=== PATIENT | female | born 1955 | race Caucasian/White ===

== ENCOUNTER 2019-01-18 17:34 | Inpatient (IN) | payer BC | END 2019-01-21 18:00 | DRG 482 | LOC: SURG 17:34 | PROC: 0QS704Z Reposition Left Upper Femur with Internal Fixation Device, Open Approach (ICD-10-PCS; principal; 2019-01-19) | DX: M80.052A Age-related osteoporosis with current pathological fracture, left femur, initial encounter for fracture (principal); Z66 Do not resuscitate; W10.9XXA Fall (on) (from) unspecified stairs and steps, initial encounter; I10 Essential (primary) hypertension; E11.65 Type 2 diabetes mellitus with hyperglycemia ==

== ENCOUNTER 2019-01-21 15:12 | Inpatient (IN) | payer BC ==
[~2019-01-21] VITALS: Ht 154.9 cm; Wt 71.5 kg
[~2019-01-21 15:12] MED LIST: ASPI325T6 PO; ASPIRIN 81M81 MG/TA2 PO; CALCIUM CARBON650 M2 PO; COLACE 100100 MG/CAP PO; DULCOLAX S10 MG/SUPP RC; GLUCOPHAGE1000 MG PO; GLUCOTROL 5M5 MG/TAB PO; LIPITOR 10MG10 MG PO; MULTIPLE VITAMI1 CAP PO; NORCO 325 MG-7.1 TAB PO; NOVOLOG 100U100 U/M1 SQ; OMEGA-3 1000 MG1 CAP PO; PRINIVIL20 MG PO
[2019-01-21 19:46] VITALS: BP 115/52; PULSE 88; TEMP 97.6
--- NOTE | 2019-01-21 21:00 | NUR ---
PT RESTING IN BED. PLEASANT AND COOPERATIVE. PT DENIES NEED FOR PAIN MED AT THIS TIME. DRSG TO LT HIP CDI. ELEVATED HEELS. ICE PACKE TO LT HIP. CALL LIGHT IN REACH. REVIEWED SAFETY PRECAUTIONS TO IPR. PT AGREEABLE.
[2019-01-22 05:13] VITALS: BP 137/73; PULSE 92; TEMP 97.7
--- NOTE | 2019-01-22 08:46 | NUR ---
PT SITTING UP IN CHAIR AND EATNG BREAKFAST. ATE 100 % MEAL. STATES NO PAIN BUT WOULD LIKE PAIN MED FOR THERAPY.
--- NOTE | 2019-01-22 09:08 | NUR ---
OT WITH PT
--- NOTE | 2019-01-22 13:06 | NUR ---
SITTING UP IN HER RECLINER VISITING WITH FAMILY. DENIES NEEDS OR PAIN
--- NOTE | 2019-01-22 13:29 | NUR ---
AFTER THIS AMS THERAPY SHOWER DRESSING WAS CHANGED TO AIRSTRIP. SITE IS WELL APPROXIMATED AND PINK. SLIGHT OLD FRIED BLOOD ON THE DRESSING NOTED.
--- NOTE | 2019-01-22 13:53 | NUR ---
ANGELA met with the patient and her family. The patient lives in [place] with her . The patient reports independence with ADLs prior to hospitalization and she has a wheelchair in case she may need it. The patient's PCP is Dr. Royal in [place], [place]. The patient asked that I give an envelope with [place] paperwork to the physician. SW placed the envelope on the patients chart and left a note for the physician. ANGELA informed the nurse of the paperwork. ANGELA will continue to follow.
[2019-01-22 17:33] VITALS: BP 130/59; PULSE 108; TEMP 98.6
--- NOTE | 2019-01-23 00:53 | NUR ---
THE PT WAS BEDRESTING WITH TV ON REPORT WAS REIEVED FROM NELLIE. THE PT'S ICE PACK WAS REFRESHED TO HER LEFT HIP, AIRSTRIP IS CD&I. ACCUCHECK WAS 206, S\S NOVOLOG PER ORDER, HS SNACK OF VANILLA ICE CREAM AND ASHIA CRACKER TAKEN. THE PT CALLS FOR ASSISTANCE UP TO THE BR, CGA WITH GAIT BELT AND WALKER. HAD C\0 PAIN 1 NORCO WITH GOOD EFFECT. THE PT HAD A BM.
[2019-01-23 03:05] VITALS: BP 127/72; PULSE 67; TEMP 98.1
--- NOTE | 2019-01-23 07:24 | NUR ---
THE PT APPEARED TO HAVE GOTTEN ADEQUATE SLEEP. CALLED FOR ASSISTANCE TO THE BR AND THEN TO THE RECLINER, USING HER IS, WAITING FOR BREAKFAST.
--- NOTE | 2019-01-23 08:19 | NUR ---
Report from CANDIDO Estrada. Pt to chair with legs up, ice pack to l hip, A&O, pleasant, takes pills with thin liquids, visiting.
--- NOTE | 2019-01-23 08:34 | NUR ---
Barcode scanner not working, replace, not working, rebooted computer, not working... full documented meds.
--- NOTE | 2019-01-23 12:11 | NUR ---
Pt amb sullivan with PT. To chair for lunch, independent with eating, glasses in place, call light in reach.
--- NOTE | 2019-01-23 12:13 | NUR ---
Ice pack to left hip
[2019-01-23 16:46] VITALS: BP 128/62; PULSE 115; TEMP 98.8
--- NOTE | 2019-01-23 16:59 | NUR ---
Pt to chair for supper with BLE up, ice pack for hip provided.
--- NOTE | 2019-01-23 19:05 | NUR ---
SHIFT REPORT RECEIVED FROM MCKINLEY DRAPER. PT REQUESTED PAIN MEDICATION FOR LLE PAIN LEVEL 5. SEE MAR FOR MEDICATIONS GIVEN. PT A&OX4. SITTING IN RECLINER. CALL LIGHT IN REACH.
--- NOTE | 2019-01-23 20:30 | NUR ---
PT TRNASFERS TO BED FROM RECLINER WITH WALKER SBA. PAIN MEDICATION EFFECTIVE. KRISTINA HOSE OFF. SCD'S ON BILAT. CALL LIGHT IN REACH. BED ALARM SET.
[2019-01-23 23:30] VITALS: PULSE 97
[2019-01-24] VITALS (7 sets, daily range): BP systolic 110–130; BP diastolic 61–74; PULSE 102–128; TEMP 98.2–98.3
--- NOTE | 2019-01-24 05:39 | NUR ---
HR 120. ASYMPTOMATIC. DENIES DYSPNEA, CHEST PAIN OR NAUSEA. A DAVONTE MARTINEZ NOTIFIED. NEW ORDERS NOTED. PT INFORMED OF NEW ORDERS FOR EKG AND UA. PT INSTRUCTED ON UA NEEDING TO BE OBTAINED. PT DENIES QUESTIONS.
--- NOTE | 2019-01-24 06:20 | NUR ---
NOTIFIED Kang MARTINEZ EKG COMPLETED.
[2019-01-24 06:29] LABS: MUCOUS Present /lpf; PH 5 (5-8); SQUAMOUS EPITHELIAL 0-2 /hpf; URINE APPEARANCE Clear; URINE BACTERIA None Seen /hpf; URINE BILIRUBIN Negative (NEGATIVE); URINE BLOOD Negative (NEGATIVE); URINE COLOR Yellow; URINE GLUCOSE 1+ (NEGATIVE); URINE KETONE Negative (NEGATIVE); URINE LEUKOCYTE ESTERASE Negative (NEGATIVE); URINE NITRATE Negative (NEGATIVE); URINE PROTEIN(semi-quant) Negative (NEGATIVE); URINE RBC 0-2 /hpf; URINE UROBILINOGEN Negative (NEGATIVE)
[2019-01-24 07:33] LABS: COLLECTION METHOD CLEAN CATCH
[2019-01-24 08:26] LABS: BASO # 0.1 (0.0-0.2); BASO % 0.5 % (0.0-2.0); EOS # 0.1 (0.0-0.7); EOS % 0.9 % (0-4.0); GRAN # 8.7 (1.4-6.5); HEMATOCRIT 42.4 % (37.0-47.0); HEMOGLOBIN 14.1 g/dl (12.5-16.0); LYMPH # 2.8 (1.2-3.4); LYMPH % 22.3 % (20.0-51.0); MEAN CELL VOLUME 90 fl (80.0-100.0); MEAN CORPUSCULAR HEMOGLOBIN 30 pg (27.0-31.0); MEAN CORPUSCULAR HGB CONC 33 g/dl (33.0-37.0); MEAN PLATELET VOLUME 9.3 fl (7.4-10.4); MONO # 0.8 (0.1-0.6); PLATELET COUNT 498 K/mm3 (130-400); RED BLOOD COUNT 4.72 M/mm3 (4.10-5.30); REDCELL DISTRIBUTION WIDTH-CV 12.1 % (11.5-14.5)
[2019-01-24 08:48] LABS: ALBUMIN 3.9 gm/dL (3.5-5.0); BILIRUBIN,TOTAL 0.8 mg/dL (0.0-1.0); CALCIUM 10.1 mg/dL (8.4-10.2); CREATININE, serum 0.69 mg/dL (0.52-1.25); POTASSIUM 3.9 mmol/L (3.4-5.0); TOTAL PROTEIN 7.3 gm/dL (6.4-8.2)
--- NOTE | 2019-01-24 18:00 | NUR ---
Patient did well today. She stated having increased pain today, but she said the increased therapy is what is causing. She is tolerating it well just gets worn out easily. Dressing changed by Nanette Llamas RN. No complaints of nausea during the day. She sat up most the day. Tolerated her diet well. No other changes at this time. Call light within reach.
--- NOTE | 2019-01-24 23:42 | NUR ---
THE PT WAS BEDRESTING ROUNDS MADE, PLEASANT BUT VERBALIZED THAT SHE WAS VERY TIRED FROM A HARD DAY OF THERAPIES. NEW SCHEDULE UP, PT GRIMACES. CALLED FOR ASSISTANCE TO THE BR TO VOID, CGA WITH GAIT BELT AND WALKER, ASSISTED BY SHERRON HER. ACCUCHECK WAS 233, 2 UNITS OF S\S NOVOLOG, WITH HS SNACK OF ASHIA CRACKER AND ICE CREAM. SHE STATED SHE WANTED 1 SENNA AND 1 NORCO FOR HS. GIVEN. APPEARS TO REST WITH EYES CLOSED, RESP EVEN. SCD'S ON, PT DOESN'T WEAR KRISTINA HOSE AT NIGHT.
--- NOTE | 2019-01-25 04:49 | NUR ---
THE PT APPEARS TO HAVE GOTTEN ADEQUATE SLEEP.
[2019-01-25 06:38] VITALS: BP 130/64; PULSE 116; TEMP 98.6
[2019-01-25 12:28] VITALS: BP 124/62; PULSE 122
--- NOTE | 2019-01-25 16:00 | NUR ---
Put in an 18 G IV catheter to patient's right AC with no difficulty.
--- NOTE | 2019-01-25 19:58 | NUR ---
Patient resting in recliner at this time, call light in reach and family by her side. Patient attended morning therapies today. Upon returning from those therapies patient vomited at least 300 ml on herself. Patient was cleaned up and given prn Zofran per Dr. Hong. Patient at the time was reporting pain 7/10 following therapies. She was also given prn Mather following her zofran and it was effective. Dr. Hong saw patient and ordered a D-Dimer. This was completed and came back elevated. Dr. Hong then ordered a bilateral ultrasound of lower legs and CT with contrast. These were completed and no new orders per Dr. Hong. Patient's Metformin was held this evening per Dr. Hong due to having the Chest CT with contrast. Family approached this nurse stating the anxiety the patient was under due to not knowing the results of the tests. This nurse spoke with patient and updated her on the results. She voiced understanding. Patient concerned about her still having a cough and some chest congestion. This was communicated to Dr. Hong no new orders at this time. Patient continues to have a tachy pulse. Will continue to monitor. She was educated on the need to stay hydrated, she voiced understanding. Reported off to night nurse.
--- NOTE | 2019-01-26 00:24 | NUR ---
THE PT WAS SITTING UP IN HER RECLINER, WITH MULTIPLE FAMILY MEMBERS IN TO VISIT. ZAYRA ASKS ABOUT FAMILY MEETING, THIS NURSE CHECKED WITH CLARA, WHO CHECKED WITH FELICIA, MEETING WILL FOLLOW OTHERS TOMORROW ABOUT 2PM. ZAYRA REPORTED THAT HIS MOTHER IN LAW ISN'T HERSELF, FEELS THAT SHE IS FEELING BAD BUT NOT WANTING TO "COMPLAIN", CLARA IN TO SEE THE PT, FOLLOWED BY THIS NURSE WHO WAS IN TO ASSESS THE PT. STILL TACHYCARDIC AT 118. REGULAR, EDEMA OF THE LEFT HIP, BUT LSCTA, BS+ALL QUADRANTS, PAIN IS AT A 3/10 PAIN SCALE, CSM T LEFT LOWER EXTREMITY WNL. VISITORS DEPARTED. PT HAD AN ACCUCHECK OF 197, NO S\\S REQUIRED, HS SNACK OF CHEESE WITH SALTINE, AND VANILLA ICE CREAM. ICE REFRESHED TO LEFT HIP, TYLENOL FOR PAIN, CALLED FOR ASSISTANCE TO THE BR AND THEN TO BED WITH SCD'S ON. NAPPED, CALLED FOR BR AGAIN. THEN BACK TO BED, POSITIONED FOR COMFORT.
--- NOTE | 2019-01-26 03:06 | NUR ---
PT HAD ASKED FOR A FACE CLOTH EARLIER, C\O THE ROOM BEING TOO HOT. DOOR LEFT OPEN, TEMP LOWERED, COOL CLOTH, TEDS AND SCD'S OFF. THE PT IS BEDRESTING WITH EYES CLOSED, RESP EVEN.
[2019-01-26 06:30] VITALS: BP 119/67; PULSE 105; TEMP 97.3
--- NOTE | 2019-01-26 06:37 | NUR ---
THE PT WAS UP AT THE SINK BRUSHING HER TEETH THE SHIFT WAS ENDING, HEART RATE IMPROVED, 105. ACCUCHECK 170. APPEARED TO GET AN ACCEPTABLE AMOUNT OF SLEEP.
[2019-01-26 08:41] LABS: HEMATOCRIT 39.5 % (37.0-47.0); HEMOGLOBIN 12.8 g/dl (12.5-16.0); MEAN CELL VOLUME 90 fl (80.0-100.0); MEAN CORPUSCULAR HEMOGLOBIN 29 pg (27.0-31.0); MEAN CORPUSCULAR HGB CONC 32 g/dl (33.0-37.0); MEAN PLATELET VOLUME 9.4 fl (7.4-10.4); PLATELET COUNT 420 K/mm3 (130-400); RED BLOOD COUNT 4.39 M/mm3 (4.10-5.30)
[2019-01-26 08:54] LABS: ALBUMIN 3.7 gm/dL (3.5-5.0); BILIRUBIN,TOTAL 0.6 mg/dL (0.0-1.0); CALCIUM 9.6 mg/dL (8.4-10.2); CREATININE, serum 0.66 mg/dL (0.52-1.25); POTASSIUM 4.1 mmol/L (3.4-5.0); TOTAL PROTEIN 6.8 gm/dL (6.4-8.2)
[2019-01-26 09:11] LABS: BAND 5 % (0-10); EOSINOPHIL 1 % (0-4); LYMPHOCYTE 27 % (20.0-51.0); METAMYELOCYTE 1 % (0-0); NEUTROPHILS 59 % (42.0-75.2); PLATELET ESTIMATE NORMAL (NORMAL)
--- NOTE | 2019-01-26 11:15 | NUR ---
Patient attended all therapies this morning. Took pills whole with water. Changed bandage to KRANTHI observing steri strips in place and no drainage. Applied new gauze to area and secured with tegaderm. Patient had requested the use of extra strength tylnol instead of using Harwood. See new orders per Dr. Hong. Patient has been having some sinus congestion and reported that she had a cold a while back but the cough and congestion keeps lingering on. See new orders per Dr. Hong for Musinex. Reviewed all meds with patient having her repeat back what each med was for. She voiced understanding. Patient wanted more education on foods that contain iron and was given a hand out on this.
--- NOTE | 2019-01-26 16:00 | NUR ---
ANGELA attended a family meeting with the patientand patient's daughter. IPR director, PT, and OT were also present. IPR director explained the purpose of the meeting. PT/OT disucssed how patient is doing and their recommendations for a tub transfer bench as well as outpatient PT. IPR director also discussed tentative discharge date for Thursday, 02/01. Patient and daughter agreed on this plan. The team answered all the patient and families questions. ANGELA then followed up with patient and daughter with the IPR Team Conference Notes. ANGELA also informed patient that her insurance does not cover the cost of a tub transfer bench and gave options for where patient could obtain one. Patient reports she might know of someone who can give her one but if not they will purchase one. The patient and daughter did not have other questions or concerns. ANGELA will continue to follow.
[2019-01-26 18:47] VITALS: BP 133/62; PULSE 131; TEMP 98.7
--- NOTE | 2019-01-26 19:00 | NUR ---
Patient attended all therapies today requesting only extra strength Tylenol to help with pain. This seemed to be effective today. Tolerated diet well. Had a BM today, wiped herself and was a observation only with transfers to and from toilet. Patient had requested some sugar free gatoraid or poweraid. Our kitchen does not provide this. Family was made aware of this and will be getting some sugar free beverages for patient. Patient denied any questions this evening. Reported off to night nurse.
--- NOTE | 2019-01-26 19:23 | NUR ---
Removed INT to right AC. IV catheter was intact. Patient tolerated with minimal discomfort reported.
--- NOTE | 2019-01-26 20:00 | NUR ---
PT SITTING IN RECLINER. PLEASANT AND COOPERATIVE. ACCUCHECK 337. GAVE 6 UNITS SSI. HS SNACK 1/2 ORANGE CHEESE AND CRACKERS. KRISTINA HOSE OFF BILAT AT THIS TIME. ENC SCD'S WHEN IN BED. PT AGREED. PT HAS OCCASIONAL PRODUCTIVE COUGH WITH CLEAR THICK SPUTUM. GETTING MUCINEX. CALL LIGHT IN REACH. CHAIR ALARM IN PLACE.
--- NOTE | 2019-01-26 22:30 | NUR ---
PT REPORTS "FEELING FUNNY EARLIER" SHAKINESS. BUT FEELS FINE NOW. POSSIBLY LOWERING BLOOD SUGAR FROM SSI GIVEN EARLIER. HR REMAINS 106. NO OTHER S/S. COLACE GIVEN FOR HARD STOOL THIS AM. ES TYLENOL GIVEN PER REQUEST FOR RT HIP PAIN LEVEL 2/10. CALL LIGHT IN REACH. BED ALARM SET.
--- NOTE | 2019-01-27 01:12 | NUR ---
SPOT CHECK ACCUCHECK 156. NO FURTHER "FUNNY FEELINGS" SINCE EARLIER. HR 100.
[2019-01-27 01:13] VITALS: PULSE 100
[2019-01-28 12:49] LABS: BASO # 0.1 (0.0-0.2); BASO % 0.5 % (0.0-2.0); EOS # 0.2 (0.0-0.7); EOS % 1.4 % (0-4.0); GRAN # 10.8 (1.4-6.5); GRAN % 67.2 % (42.2-75.2); HEMATOCRIT 40.2 % (37.0-47.0); HEMOGLOBIN 13.9 g/dl (12.5-16.0); LYMPH # 3.3 (1.2-3.4); LYMPH % 20.7 % (20.0-51.0); MEAN CELL VOLUME 91 fl (80.0-100.0); MEAN CORPUSCULAR HEMOGLOBIN 31 pg (27.0-31.0); MEAN CORPUSCULAR HGB CONC 35 g/dl (33.0-37.0); MEAN PLATELET VOLUME 9.2 fl (7.4-10.4); MONO # 1.5 (0.1-0.6); RED BLOOD COUNT 4.42 M/mm3 (4.10-5.30); REDCELL DISTRIBUTION WIDTH-CV 12.2 % (11.5-14.5)
[2019-01-28 12:55] LABS: PLATELET COUNT 578 K/mm3 (130-400)
[2019-01-28 13:06] LABS: CALCIUM 10.4 mg/dL (8.4-10.2); CREATININE, serum 0.68 mg/dL (0.52-1.25); POTASSIUM 3.8 mmol/L (3.4-5.0)
[2019-01-28 18:27] LABS: COLLECTION METHOD CLEAN CATCH
[2019-01-28 18:47] VITALS: BP 117/48; PULSE 75; TEMP 98.2
[2019-01-28 18:50] LABS: MUCOUS Present /lpf; PH 5 (5-8); SQUAMOUS EPITHELIAL 0-2 /hpf; URINE APPEARANCE Hazy; URINE BACTERIA None Seen /hpf; URINE BILIRUBIN Negative (NEGATIVE); URINE BLOOD Negative (NEGATIVE); URINE COLOR Yellow; URINE GLUCOSE Negative (NEGATIVE); URINE KETONE Negative (NEGATIVE); URINE LEUKOCYTE ESTERASE Negative (NEGATIVE); URINE NITRATE Negative (NEGATIVE); URINE PROTEIN(semi-quant) Negative (NEGATIVE); URINE RBC 0-2 /hpf; URINE UROBILINOGEN Negative (NEGATIVE)
--- NOTE | 2019-01-28 20:00 | NUR ---
Patient modified independent in room and sitting up in recliner. Alert and oriented x4. Denies pain at this time. Takes cheese and crackers following accu check. Dressing left hip CDI and new ice bag given. HS meds all reviewed and taken without problems.
--- NOTE | 2019-01-28 20:45 | NUR ---
Pt made modified independent in room today with FWW. Donned own TEDs this morning with tool. Hip dressing without shadowing. Pt reports SCDs on overnight. Still tachycardic, RRR. Tylenol ES for pain. Report to CANDIDO Cummings.
--- NOTE | 2019-01-28 20:47 | NUR ---
Elevated WBC reported to Dr. Hong, who ordered UA. Pt denies dysuria, back pain, foul odor or cloudy urine, or frequency.
--- NOTE | 2019-01-28 23:30 | NUR ---
Patient rests in bed with eyes closed. Respirations with ease. SCD's on.
[2019-01-29 04:26] VITALS: BP 132/64; PULSE 109; TEMP 98.7
--- NOTE | 2019-01-29 06:00 | NUR ---
Patient awakened for accu check. Denies further needs. Incontinent in levi pad earlier and changed self to pullup. Rests in bed. Ice to left hip.
[2019-01-29 07:40] LABS: BASO % 0.4 % (0.0-2.0); EOS # 0.2 (0.0-0.7); EOS % 1.8 % (0-4.0); GRAN # 5.8 (1.4-6.5); GRAN % 60.5 % (42.2-75.2); LYMPH # 2.5 (1.2-3.4); LYMPH % 26.2 % (20.0-51.0); MEAN CELL VOLUME 90 fl (80.0-100.0); MEAN CORPUSCULAR HGB CONC 33 g/dl (33.0-37.0); MEAN PLATELET VOLUME 9.3 fl (7.4-10.4); MONO # 0.9 (0.1-0.6); MONO % 9.6 % (1.7-9.3); RED BLOOD COUNT 3.85 M/mm3 (4.10-5.30); REDCELL DISTRIBUTION WIDTH-CV 12.3 % (11.5-14.5)
[2019-01-29 07:46] LABS: HEMATOCRIT 34.8 % (37.0-47.0); HEMOGLOBIN 11.4 g/dl (12.5-16.0); MEAN CORPUSCULAR HEMOGLOBIN 30 pg (27.0-31.0); PLATELET COUNT 417 K/mm3 (130-400)
--- NOTE | 2019-01-29 08:17 | NUR ---
Fell asleep right away at 10 pm, slept to 3:30 AM, went to bathroom, back to bed and then slept the rest of the morning. Pain 1/10 given one extra strength tylenol to pre medicate prior to group therapy. Will continue to monitor.
[2019-01-29 15:26] VITALS: BP 119/59; PULSE 112; TEMP 99.1
--- NOTE | 2019-01-29 19:34 | NUR ---
Patient resting in recliner at this time, call light in reach and indepdent in her room. Dressing to left hip incision is CDI and was last replaced on 01/26/19. Will continue to monitor. Patient has been indepedent with grooming, toileting, getting in and out of bed, rolling left & right, standing and sitting. She has been using her walker appropriatly. Pulse continues to be watched for increased tachycardia. Aranza had pain today -02/06 and was managed with extra strength tylenol with good effect. Will continue to monitor. Patient has been eating well today. Attended group therapy today. Denies any concerns at this time.
--- NOTE | 2019-01-29 21:00 | NUR ---
HS meds all reviewed and given along with tylenol for pain. Sits up in recliner watching game on TV. Denies further needs. New ice pack given and to left hip.
--- NOTE | 2019-01-29 23:07 | NUR ---
Patient rests in bed with eyes closed. Respirations with ease.
--- NOTE | 2019-01-30 01:00 | NUR ---
RESTS WITH EYES CLOSED. RESPIRATIONS WITH EASE.
--- NOTE | 2019-01-30 03:00 | NUR ---
Patient awake resting in bed. States doing fine and denies needs.
[2019-01-30 03:34] VITALS: BP 120/63; PULSE 109; TEMP 98.8
--- NOTE | 2019-01-30 17:43 | NUR ---
Patient resting in recliner at this time, call light in reach and is independent in her room with a walker. Patient walked with her walker and was observation only when walking around [facility] and Surgical hallway today. Patient's pain to Left Lower Leg has been managed with extra strength tylenol and is very effective. Patient tolerating diet well. Patient denied questions at this time. Patient was seen by Dr. Hong, no new orders.
[2019-01-30 18:06] VITALS: BP 130/57; PULSE 132; TEMP 99.5
--- NOTE | 2019-01-31 01:47 | NUR ---
THE PT WAS UP IN HER RECLINER THE SHIFT BEGAN, MANAGING MODIFIED INDEPENDENT IN HER ROOM WITHOUT DIFFICULTY. APPEARS TO HAVE GOOD ATTENTION TO SAFETY AND SURROUNDINGS. ACCUCHECK WAS 239, HS SNACK OF SALTINES-2 WITH 1 SLICE OF CHEESE AND A VANILLA ICE CREAM. THE PT GOT SELF TO AND FROM THE BR, CALLED FOR ASSISTANCE WITH SCD'S AND TO REFRESH ICE BAG FOR HER LEFT HIP. WAS UP TO THE BR ABOUT MN, REQUESTED TYLENOL FOR DISCOMFORT- GIVEN.
--- NOTE | 2019-01-31 04:43 | NUR ---
BEDRESTING WITH EYES CLOSED, RESP EVEN
--- NOTE | 2019-01-31 04:44 | NUR ---
APPEARS TO GET ADEQUATE SLEEP TONIGHT.
[2019-01-31 05:27] VITALS: BP 129/60; PULSE 114; TEMP 99
[2019-01-31] MEDS ORDERED: TYLENOL 325MG325 MG PO (08:48)
[2019-01-31] MEDS ORDERED: NORCO 325 MG-7.1 TAB PO (08:49)
--- NOTE | 2019-01-31 15:00 | NUR ---
Patient has been doing well today. Denies nausea. Minimal complaints of pain. She has been doing well with her therapies. She showered this am. Thas not been any drainage from her incision for over 5 days so dressing has been discontinued. She has some bruising to left thight but is healing well otherwise. No other changes at this time. Call light within reach.
[2019-01-31 17:53] VITALS: BP 119/47; PULSE 120; TEMP 98.3
--- NOTE | 2019-02-01 00:56 | NUR ---
THE PT WAS VISITING WITH HER DAUGHTER AND SON IN LAW THE SHIFT BEGAN. SPECIFIC INSTRUCTIONS WERE GIVEN TO THIS NURSE BY THE PT'S DAUGHTER AND THIS WAS CONVEYED ON UNIT CENSUS FOR PLAN OF DISCHARGE TO HOME WITH FALILY- OUT PT THERAPY TO CONTINUE. FAMILY DEPARTED FOR HOME, THEN SHE HAD SEVERAL PHONE CALLS. THIS NURSE IN FOR HER ASSESSMENT AND ACCUCHECK- 220 AND MEDS, WANTED TYLENOL FOR C\O PAIN. GIVEN WITH GOOD EFFECT IN AN HOUR, THE PT WAS BEDRESTING WITH EYES CLOSED, RESP EVEN. HER HS SNACK WAS VANILLA PUDDING, SLICE OF CHEESE AND 2 SALTINES.
--- NOTE | 2019-02-01 04:10 | NUR ---
APPEARS TO GET ADEQUATE SLEEP. THE PT IS MODIFIED INDEPENDENT IN HER ROOM WITH HER WALKER WITHOUT FALL OR INJURY- GOOD ATTENTION TO SAFETY AND SURROUNDINGS.
[2019-02-01 06:27] VITALS: BP 132/65; PULSE 110; TEMP 98.4
--- NOTE | 2019-02-01 14:26 | NUR ---
Pt discharged at this time
--- NOTE | 2019-02-01 20:49 | NUR ---
Summary: Report from CANDIDO Estrada. Pt dariela mod I in rm w/o complaint. Tylenol for pain PRN. BG required no SSI. Printed pt's health summary, discharge summary, and home med list and reviewed with pt and and daughter in room. Given printed prescription for norco. Stressed importance of f/u appts. Called pt's pharm to verify doses and frequencies of lisinopril, atorvastatin, and glipizide. Belongings gathered by pt/family, including glasses, walker with basket, cell phone political director, ring, shoes, clothes and coats. Pt and family denied any questions. Pt transported via by SHERRON Esquivel for ride home. Pt and family denied any questions. Pt's cell phone later found and daughter picked it up- they had not yet departed from the parking lot. Faxed pt's face sheet, H&P, discharge summary and blood sugars to PCP and received "OK" fax receipt.
== END 2019-02-01 14:30 | disposition home or self-care (01) | DRG 561 ==
PROVIDERS: Nurse Practitioner; ADMIT Internal Medicine
DX: M80.052D Age-related osteoporosis with current pathological fracture, left femur, subsequent encounter for fracture with routine healing (principal); Z66 Do not resuscitate; W18.30XD Fall on same level, unspecified, subsequent encounter; I10 Essential (primary) hypertension; E11.65 Type 2 diabetes mellitus with hyperglycemia
CPT/HCPCS: 99222-AI; 99232-AI; 99233-AI; 99239; J1815; Q9967

== ENCOUNTER → 2020-08-13 | Outpatient (CLI) | payer MEDICARE, OTHER ==
[~2020-08-13] MED LIST changes: +TYLENOL 325MG325 MG PO
[2020-08-13 17:19] LABS: HEMATOCRIT 40.3 % (37.0-47.0); HEMOGLOBIN 13.1 g/dl (12.5-16.0); MEAN CELL VOLUME 88 fl (80.0-100.0); MEAN CORPUSCULAR HEMOGLOBIN 29 pg (27.0-31.0); MEAN CORPUSCULAR HGB CONC 33 g/dl (33.0-37.0); MEAN PLATELET VOLUME 9.2 fl (7.4-10.4); PLATELET COUNT 437 K/mm3 (130-400); RED BLOOD COUNT 4.58 M/mm3 (4.10-5.30); REDCELL DISTRIBUTION WIDTH-CV 12.7 % (11.5-14.5)
[2020-08-13 17:48] LABS: ERYTHROCYTE SEDIMENTATION RATE 34 mm/hr (0-30)
== END ==
LOC: COL.LAB 16:47
PROVIDERS: Nurse Practitioner
DX: L03.116 Cellulitis of left lower limb (principal); Z98.890 Other specified postprocedural states; Z87.81 Personal history of (healed) traumatic fracture